=== PATIENT | female | born 1960 | race Asian ===

== ENCOUNTER → 2024-02-19 | Outpatient (CLI) | payer MEDICARE, OTHER ==
[~2024-02-19] VITALS: Ht 165.1 cm; Wt 62.0 kg
[~2024-02-19] MED LIST: ASPI-1444 PO; ROSU10TA72 PO
[2024-02-19 13:29] VITALS: BP 139/69; PULSE 64; RESP 16; TEMP 98.6; O2SAT 100
== END | disposition home or self-care (01) ==
LOC: SRCNTR 12:49
PROVIDERS: ATTEND Internal Medicine
DX: R55 Syncope and collapse (principal); E78.5 Hyperlipidemia, unspecified; Z82.49 Family history of ischemic heart disease and other diseases of the circulatory system; Z79.82 Long term (current) use of aspirin; Z79.899 Other long term (current) drug therapy
CPT/HCPCS: 93005; G0463